=== PATIENT | male | born 1970 | race American Indian/Alaskan Native ===

== ENCOUNTER 2018-12-17 00:35 | Emergency (ER) | payer OTHER ==
[2018-12-17] MEDS ORDERED: ZOFRAN IM ONE (00:56)
[2018-12-17] MEDS ORDERED: MORPHINE IM ONE (00:56)
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
--- NOTE | 2018-12-17 01:15 | XRay Report ---
FINAL REPORT EXAM: XR TIBIA FIBULA 2V RT HISTORY: lower ext injury tib/fib COMPARISON: None available. FINDINGS: Two views of right tibia and fibula obtained. Bony structures are intact. Joint spaces are preserved . No acute fracture dislocation. IMPRESSION: No acute bony abnormality.
[2018-12-17] MEDS ORDERED: TYLENOL PO ONE (01:40)
[2018-12-17] MEDS ORDERED: TYLENOL ONE (01:57)
[2018-12-17 02:20] VITALS: BP 160/97
== END 2018-12-17 02:08 | disposition home or self-care (01) ==
LOC: ED 00:35
DX: S80.11XA Contusion of right lower leg, initial encounter (principal); V49.49XA Driver injured in collision with other motor vehicles in traffic accident, initial encounter; Y93.89 Activity, other specified; Y99.8 Other external cause status; Y92.410 Unspecified street and highway as the place of occurrence of the external cause

== ENCOUNTER 2022-02-12 13:23 | Emergency (ER) | payer OTHER ==
[2022-02-12 16:44] VITALS: BP 149/92
[2022-02-12] MEDS ORDERED: DEXAMETHASONE 4 MG TAB PO ONE (20:28)
[2022-02-12] MEDS ORDERED: CYCLOBENZAPRINE 10 MG TAB PO ONE (20:28)
[2022-02-12] MEDS ORDERED: KETOROLAC 10 MG TAB PO ONE (20:28)
--- NOTE | 2022-02-12 20:32 | Emergency Department Report ---
ED Neck Pain/Injury HPI - General Chief Complaint: Neck Pain/Injury Stated Complaint: NECK PAIN Time Seen by Provider: 02/12/22 19:44 Mode of arrival: Ambulatory Limitations: No Limitations - History of Present Illness Initial Comments: 51-year-old black male with no past medical history presents to the emergency department for evaluation of right neck pain that started last Saturday. He denies injury or trauma. He states that pain has been intermittent and when it comes it is intense but only lasts for about 5 minutes. He states that pain radiates to his right ear and sometimes down his right arm with tingling in his right hand. He states that pain is worse with certain positions and with palpation. He rates pain 10 out of 10. He denies vision changes, fever, head ache, alteration in gait, and weakness. MD Complaint: neck pain -: Gradual, days(s) (7) Place: home Radiation: head, right shoulder, right upper extremity Severity: severe, intermittent Severity scale (0 -10): 10 Quality: burning, aching Worsens With: movement of extremity, movement of neck Associated Symptoms: numbness, tingling. denies: headache, fever, weakness, vertigo, difficulty walking, swollen glands, difficulty swallowing, nausea, vomiting Treatments Prior to Arrival: none - Related Data Previous Rx's Medication Instructions Recorded Last Taken Type Cyclobenzaprine HCl [Flexeril 5 MG 5 mg PO TID PRN #21 tab 12/17/18 Unknown Rx TAB] Naproxen [Naprosyn] 500 mg PO BID #14 tablet 12/17/18 Unknown Rx Cyclobenzaprine [Flexeril] 10 mg PO TID PRN #21 tab 02/12/22 Unknown Rx Naproxen [Naprosyn] 500 mg PO BID #14 tab 02/12/22 Unknown Rx methylPREDNISolone [Medrol 4MG 4 mg PO DAILY #1 pack 02/12/22 Unknown Rx DOSEPAK (21 tabs)] Allergies Allergy/AdvReac Type Severity Reaction Status Date / Time No Known Allergies Allergy Unverified 12/17/18 00:46 ED Review of Systems ROS: Stated complaint: NECK PAIN Other details as noted in HPI Comment: All other systems reviewed and negative Constitutional: denies: chills, fever Eyes: denies: eye pain, eye discharge, vision change ENT: denies: ear pain, throat pain, dental pain, congestion Respiratory: denies: cough, shortness of breath, SOB with exertion, SOB at rest Cardiovascular: denies: chest pain, palpitations, dyspnea on exertion Gastrointestinal: denies: abdominal pain, nausea, vomiting, diarrhea, hematemesis, melena, hematochezia Genitourinary: denies: urgency, dysuria, frequency, hematuria, discharge Musculoskeletal: denies: back pain Skin: denies: rash, lesions Neurological: denies: headache, weakness ED Past Medical Hx - Social History Smoking Status: Never Smoker Substance Use Type: Alcohol - Medications Home Medications: Home Medications Medication Instructions Recorded Confirmed Last Taken Type Cyclobenzaprine HCl [Flexeril 5 MG 5 mg PO TID PRN #21 tab 12/17/18 Unknown Rx TAB] Naproxen [Naprosyn] 500 mg PO BID #14 tablet 12/17/18 Unknown Rx Cyclobenzaprine [Flexeril] 10 mg PO TID PRN #21 tab 02/12/22 Unknown Rx Naproxen [Naprosyn] 500 mg PO BID #14 tab 02/12/22 Unknown Rx methylPREDNISolone [Medrol 4MG 4 mg PO DAILY #1 pack 02/12/22 Unknown Rx DOSEPAK (21 tabs)] ED Physical Exam - General Limitations: No Limitations General appearance: alert, in no apparent distress - Head Head exam: Present: atraumatic, normocephalic - Eye Eye exam: Present: normal appearance. Absent: conjunctival injection - Neck Neck exam: Present: normal inspection, tenderness (Right side only). Absent: full ROM, thyromegaly - Respiratory Respiratory exam: Present: normal lung sounds bilaterally. Absent: respiratory distress, wheezes, rales, rhonchi, stridor, chest wall tenderness - Cardiovascular Cardiovascular Exam: Present: tachycardia, normal heart sounds - GI/Abdominal GI/Abdominal exam: Present: soft, normal bowel sounds. Absent: distended, tenderness, guarding, rebound, rigid - Extremities Exam Extremities exam: Present: normal inspection - Expanded Upper Extremity Exam Right Shoulder Exam: Present: normal inspection, full ROM. Absent: tenderness, swelling, abrasion, ecchymosis, crepidus, dislocation, erythema, tenderness over AC joint Vascular: Present: normal capillary refill, radial pulse. Absent: vascular compromise, Pallo, pulse deficit radial art - Back Exam Back exam: Present: normal inspection. Absent: CVA tenderness (R), CVA tenderness (L) - Neurological Exam Neurological exam: Present: alert, oriented X3 - Psychiatric Psychiatric exam: Present: normal affect, normal mood - Skin Skin exam: Present: warm, dry, intact, normal color ED Course Vital Signs 02/12/22 02/12/22 16:43 20:46 Temperature 98.4 F Pulse Rate 104 H Respiratory 18 18 Rate Blood Pressure 149/92 [Right] O2 Sat by Pulse 98 Oximetry ED Medical Decision Making - Medical Decision Making 51-year-old black male with no past medical history presents to the emergency department for evaluation of right neck pain that started last Saturday. He denies injury or trauma. He states that pain has been intermittent and when it comes it is intense but only lasts for about 5 minutes. He states that pain radiates to his right ear and sometimes down his right arm with tingling in his right hand. He states that pain is worse with certain positions and with palpation. He rates pain 10 out of 10. He denies vision changes, fever, headache, alteration in gait, and weakness. Symptoms and exam consistent with cervical radiculopathy. Patient will be treat ed with steroids, anti-inflammatories, muscle relaxants. He is advised to take medications as prescribed and follow-up with primary care provider if no improvement or worsening symptoms. He is advised to return to the emergency department for any concerning symptoms. He verbalized understanding of and agreement with plan of care. Critical care attestation.: If time is entered above; I have spent that time in minutes in the direct care of this critically ill patient, excluding procedure time. ED Disposition Clinical Impression: Cervical radicular pain Disposition: HOME / SELF CARE / HOMELESS Is pt being admited?: No Does the pt Need Aspirin: No Condition: Stable Instructions: Cervical Radiculopathy, [id number] Additional Instructions: Medications as prescribed. Follow-up with primary care provider if no improvement or worsening symptoms. Return to the emergency department as needed. Prescriptions: Cyclobenzaprine [Flexeril] 10 mg PO TID PRN #21 tab PRN Reason: Muscle Spasm methylPREDNISolone [Medrol 4MG DOSEPAK (21 tabs)] 4 mg PO DAILY #1 pack Naproxen [Naprosyn] 500 mg PO BID #14 tab Referrals: [facility] [Other] - 3-5 Days Time of Disposition: 20:32
== END 2022-02-12 20:53 | disposition home or self-care (01) ==
LOC: ED 13:23
DX: M54.12 Radiculopathy, cervical region (principal); F10.20 Alcohol dependence, uncomplicated
CPT/HCPCS: 99282; J8540